=== PATIENT | female | born 1935 ===

== ENCOUNTER 2020-06-26 10:51 | Outpatient (CLI) | payer OTHER | END 2020-06-26 10:54 | disposition home or self-care (01) | LOC: SONOGRAMA 10:51 | PROVIDERS: ATTEND Pathology Anatomic Pathology & Clinical Pathology | DX: D34 Benign neoplasm of thyroid gland (principal); E06.5 Other chronic thyroiditis; E04.2 Nontoxic multinodular goiter ==